=== PATIENT | male | born 1955 | race Caucasian/White ===

== ENCOUNTER → 2018-08-04 | Outpatient (CLI) | payer OTHER, SELFPAY ==
[2017-03-20 13:01] VITALS: BMI 31.1
[2018-08-04 10:30] LABS: AST(SGOT) 20 U/L (15-37); Alanine Aminotransfer ALT/SGPT 39 U/L (16-61); Albumin, Serum 3.6 g/dL (3.2-5.0); Alkaline Phosphatase 90 U/L (45-117); Anion Gap 8 (5-15); BUN 15 mg/dL (7-18); BUN/Creat Ratio 12.7 RATIO (10-20); Calcium,Total 8.7 mg/dL (8.5-10.1); Chloride 107 mmol/L (98-107); Cholesterol 175 mg/dL (200); Creatinine, Serum 1.18 mg/dL (0.70-1.30); EST Glomerular Filtration Rate 66 mL/min (>60); Est Glom Filt Rate - Afr Amer 80 mL/min (>60); Globulin 3.6 g/dL (2.2-4.2); Glucose 99 mg/dL (74-106); High Density Lipoprotein 36 mg/dL; PSA,Total - Annual Screen 1.78 ng/mL (0.00-4.00); Potassium 4.2 mmol/L (3.5-5.1); Protein, Total 7.2 g/dL (6.4-8.2); Sodium Level 144 mmol/L (136-145); Thyroid Stim Hormone (TSH) 0.71 uIU/mL (0.358-3.74); Triglycerides 119 mg/dL; Very Low Density Lipoprotein 24 mg/dL (5-40); Vitamin B12 555 pg/mL (211-911); Vitamin D,25 Hydroxy 17.9 ng/mL (29.95-100.01)
[2018-08-09 15:10] LABS: Testosterone, % Free 2.24 % (1.50-4.20); Testosterone, Total 299 ng/dL (264-916)
== END | disposition home or self-care (01) ==
LOC: MTLAB 08:39
PROVIDERS: Family Provider Family Medicine; PCP Family Medicine; Referring Provider Family Medicine; Visit Provider Family Medicine
DX: Z00.00 Encounter for general adult medical examination without abnormal findings (principal); R53.83 Other fatigue; E53.8 Deficiency of other specified B group vitamins; E34.9 Endocrine disorder, unspecified
CPT/HCPCS: 36415; 80053; 80061; 82306; 82607; 84153; 84402; 84403; 84443; G0103

== ENCOUNTER 2018-09-05 05:56 | Day surgery (SDC) | payer OTHER, SELFPAY ==
[2018-09-05] VITALS (8 sets, daily range): BP systolic 108–135; BP diastolic 77–97; PULSE 85–97; RESP 16; TEMP 36.4–36.8; O2SAT 92–98; BMI 31.6
--- NOTE | 2018-09-05 07:00 | COLBX_PTH ---
PATIENT: RENA YBARRA LOC: EN U#:[id number] AGE/SX: 63/M ROOM: RE09/05/[address]: Dr. Blayne Muniz MD : [id number] BED: DIS: 09/05/2018 SPEC #: [id number] RECD: 09/05/18 09:07 STATUS: CORIE MOON #: [id number] ANIYAH: 09/05/18 07:[address]: Blayne Muniz DEPT: SURGICAL PATHOLOGY RECD BY: Keith Adhikari ENTERED: 09/05/18 09:49 SP TYPE: COLON BX OTHR DR: Dr. Jesse Roberson MD Tissues: A - Cecum, NOS B - Transverse colon C - Descending colon D - Sigmoid colon biopsy Procedures: Surgery Specimen Level IV HEADER OPERATION: Colonoscopy - open access (MOD) PRE-OP DIAGNOSIS: Screening TISSUE SUBMITTED: A. Cecal polyp, B. Proximal transverse colon polyp biopsy, C. Descending colon polyp, D. Proximal sigmoid colon polyp MICROSCOPIC DIAGNOSIS A. Cecal polyp, biopsy: Fragments of tubular adenoma. B. Proximal transverse colon polyp, biopsy: Fragments of colonic mucosa, no pathologic diagnosis. C. Descending colon polyp, biopsy: Tubular adenoma. D. Proximal sigmoid colon polyp, biopsy: Tubular adenoma. STACY:yandy 09/06/18 MICROSCOPIC DESCRIPTION Slides are reviewed. GROSS DESCRIPTION A - Received in fixative is one container labeled with the patient's name and designated cecal polyp. The specimen consists of multiple irregular fragments of light garcias soft tissue that in aggregate measure 2 x 0.2 x 0.1 cm. The specimen is totally submitted in one cassette. B - Received in fixative is one container labeled with the patient's name and designated proximal transverse colon polyp. The specimen consists of multiple irregular fragments of light garcias soft tissue that in aggregate measure 0.6 x 0.2 x 0.1 cm. The specimen is totally submitted in one cassette. C - Received in fixative is one container labeled with the patient's name and designated descending colon polyp. The specimen consists of a garcias-pink polyp measuring 0.7 x 0.5 x 0.5 cm. The entire specimen is submitted in one cassette. D - Received in fixative is one container labeled with the patient's name and designated proximal sigmoid colon polyp. The specimen consists of two irregular fragments of light garcias soft tissue that in aggregate measure 0.4 x 0.3 x 0.1 cm. The specimen is totally submitted in one cassette. / SJ:yandy 09/05/18 TC:1 CPT: 84068 x4 ADDENDUM ADDENDUM ADDENDUM 09/11/2018 11:48 ADDENDUM 09/11/2018 11:48 ADDENDUM 09/11/2018 11:48 ADDENDUM 09/11/2018 11:48 ADDENDUM 09/11/2018 11:48 B. Proximal transverse colon polyp, biopsy: During QC review, Dr. Gomez favored the diagnosis of tubular adenoma.
--- NOTE | 2018-09-05 07:03 | HP.PCM_ITS ---
Problem List (1) Screening for intestinal cancer Status: Acute History of Present Illness Date of Admission: 09/05/18 The patient is a 63 year old M presents for screening colonoscopy. He denies bright red blood per rectum or melena. No abdominal pain. No change in body habitus. He has had one previous colonoscopy 10 years prior. He has not had any acute change of health. Past Medical History Allergies No Known Allergies Allergy (Verified 03/20/17 13:02) Home Medications: Ambulatory Orders Medication Instructions Recorded cholecalciferol (vitamin D3) 1,000 1,000 unit PO ONCE 03/20/17 unit capsule multivitamin,[id number] 1 tab PO QDAY 03/20/17 tablet vitamin B12 500 mcg-folic acid 400 1 tab PO QDAY 03/20/17 mcg tablet Henderson-3 Fatty Acids [Fish Oil] 500 mg PO DAILY 09/01/18 Testosterone 1.25 gm TD DAILY 09/01/18 Surgical History: Surgical History (Last Updated 03/20/17 @ 13:05 by Bianka Medrano) herniated disk surgery left ankle surgery lower back surgery Smoking Status: Never smoker Review of Systems Constitutional: Denies: Anorexia HEENT: Denies: Difficulty Swallowing Cardiovascular: Denies: Chest Pain, Chest Tightness Respiratory: Denies: Cough, Shortness of Breath Gastrointestinal: Denies: Abdominal Pain, Nausea, Melena Neurological: Denies: Focal weakness Endocrine: Denies: Change in Body Habitus VTE Information - Inpt Only VTE Present on Admission: No Patient Problems: Active and Suspected Problems Screening for intestinal cancer (Acute) - Physical Exam General: Alert, Oriented x3, Cooperative, No apparent distress HEENT: Atraumatic Lungs: Clear to auscultation, Normal air movement Cardiovascular: Regular rate, Regular Rhythm Abdomen: Bowel Sounds Present, Soft, Non Tender Extremities: No Calf Tenderness Psych/Mental Status: Normal Affect Vital Signs Temp Pulse Resp BP Pulse Ox 98.0 F 97 16 127/94 H 94 09/05/18 06:27 09/05/18 06:27 09/05/18 06:27 09/05/18 06:27 09/05/18 06:27 Oxygen Delivery Method Room Air Weight: 246 lb 0.574 oz Body Mass Index (BMI) 31.6 Assessment/Plan All Active Problems Screening for intestinal cancer (Acute) I am recommended the patient is screening colonoscopy with possible biopsy or polypectomy is indicated. He is aware of the technique, benefits, risks and alternatives. He presents via our open access program. We will proceed as noted. Blayne Muniz M.D., F.A.C.S.
--- NOTE | 2018-09-05 07:39 | OP.ENDO_ITS ---
09/05/2018 Gil Roberson [address] [place] [address] Re : Colonoscopy procedure for Zaid Silva Dear Dr. Roberson This procedure was performed on Wednesday, September 05, 2018. My impressions and recommendations are as follows: Impressions : - Hemorrhoids found on perianal exam. - Diverticulosis in the sigmoid colon. - One 7 mm polyp in the cecum, removed with a cold snare. Resected and retrieved. - One 3 mm polyp in the proximal transverse colon, removed with a cold biopsy forceps. Resected and retrieved. - One 2 mm polyp in the proximal transverse colon, removed with a cold biopsy forceps. Resected and retrieved. - One 10 mm polyp in the descending colon, removed with a hot snare. Resected and retrieved. - One 9 mm polyp in the proximal sigmoid colon, removed with a hot snare. Resected and retrieved. Recommendations : - Discharge patient to home. - Resume previous diet. - Continue present medications. - Repeat colonoscopy in 3 years for surveillance. - Telephone my office for pathology results in 1 week. My findings are described in the full procedure note, which is enclosed. If I can be of further assistance, please feel free to contact me at Doctor phone number(s): Work: . Sincerely, Blayne Muniz MD 09/05/2018 7:39:36 AM This report has been signed electronically.
== END 2018-09-05 08:26 | disposition home or self-care (01) ==
LOC: EN 05:57 → AC 06:02
PROVIDERS: Family Provider Family Medicine; PCP Family Medicine; Referring Provider Family Medicine; Visit Provider Surgery
PROC: 0DJD8ZZ Inspection of Lower Intestinal Tract, Via Natural or Artificial Opening Endoscopic (ICD-10-PCS; CPT 45378; principal; 2018-09-05 06:55)
DX: Z12.11 Encounter for screening for malignant neoplasm of colon (principal); D12.0 Benign neoplasm of cecum; D12.4 Benign neoplasm of descending colon; D12.5 Benign neoplasm of sigmoid colon; K63.5 Polyp of colon; K64.9 Unspecified hemorrhoids; K57.30 Diverticulosis of large intestine without perforation or abscess without bleeding
CPT/HCPCS: 45380; 45385; 88305; 99152; 99153; J7120

== ENCOUNTER → 2018-10-06 | Outpatient (CLI) | payer OTHER, SELFPAY ==
[2018-09-05 06:27] VITALS: BMI 31.6
[2018-10-09 09:07] LABS: Testosterone, Free 16.07 ng/dL (5.00-21.00)
[2018-10-09 11:57] LABS: Testosterone, % Free 3.15 % (1.50-4.20); Testosterone, Total 510 ng/dL (264-916)
== END | disposition home or self-care (01) ==
LOC: MTLAB 08:10
PROVIDERS: Family Provider Family Medicine; PCP Family Medicine; Referring Provider Family Medicine; Visit Provider Family Medicine
DX: E34.9 Endocrine disorder, unspecified (principal)
CPT/HCPCS: 36415; 84402; 84403

== ENCOUNTER → 2019-01-24 08:40 | Outpatient (CLI) | payer OTHER, SELFPAY ==
[2018-09-05 06:27] VITALS: BMI 31.6
[2019-01-24 10:46] LABS: ALB/GLOB Ratio 1.1 RATIO (0.9-2.4); AST(SGOT) 19 U/L (15-37); Alanine Aminotransfer ALT/SGPT 32 U/L (16-61); Albumin, Serum 3.7 g/dL (3.2-5.0); Alkaline Phosphatase 73 U/L (45-117); Anion Gap 6 (5-15); BUN 20 mg/dL (7-18); BUN/Creat Ratio 16.4 RATIO (10-20); Calcium,Total 8.6 mg/dL (8.5-10.1); Chloride 105 mmol/L (98-107); Cholesterol 207 mg/dL (200); Creatinine, Serum 1.22 mg/dL (0.70-1.30); EST Glomerular Filtration Rate 64 mL/min (>60); Est Glom Filt Rate - Afr Amer 77 mL/min (>60); Globulin 3.4 g/dL (2.2-4.2); Glucose 101 mg/dL (74-106); High Density Lipoprotein 35 mg/dL; PSA,Total - Annual Screen 1.57 ng/mL (0.00-4.00); Potassium 4.1 mmol/L (3.5-5.1); Protein, Total 7.1 g/dL (6.4-8.2); Sodium Level 141 mmol/L (136-145); Triglycerides 151 mg/dL; Very Low Density Lipoprotein 30 mg/dL (5-40)
[2019-01-27 14:07] LABS: Testosterone, Free 11.76 ng/dL (5.00-21.00)
[2019-01-29 20:26] LABS: Testosterone, % Free 2.45 % (1.50-4.20); Testosterone, Total 480 ng/dL (264-916)
== END ==
PROVIDERS: Family Provider Family Medicine; PCP Family Medicine; Referring Provider Family Medicine; Visit Provider Family Medicine
DX: E78.5 Hyperlipidemia, unspecified (principal); E34.9 Endocrine disorder, unspecified
CPT/HCPCS: 36415; 80053; 80061; 84153; 84402; 84403; G0103

== ENCOUNTER → 2019-07-30 | Outpatient (CLI) | payer OTHER, SELFPAY ==
[2018-09-05 06:27] VITALS: BMI 31.6
[2019-07-30 12:21] LABS: CRP, High Sensitivity Cardiac 3.05 mg/L
[2019-07-30 12:22] LABS: Vitamin D,25 Hydroxy 43.4 ng/mL
[2019-07-30 12:25] LABS: Hemoglobin A1c 4.8 % (3.8-5.6)
[2019-08-02 06:36] LABS: Estrogen, Total, Serum 142 pg/mL (40-115)
== END | disposition home or self-care (01) ==
PROVIDERS: PCP Family Medicine; Referring Provider Family Medicine; Visit Provider Family Medicine
DX: E55.9 Vitamin D deficiency, unspecified (principal); E66.9 Obesity, unspecified; E78.5 Hyperlipidemia, unspecified; E34.9 Endocrine disorder, unspecified
CPT/HCPCS: 36415; 82306; 82533; 82672; 83036; 86141

== ENCOUNTER → 2019-08-06 09:02 | Outpatient (CLI) | payer OTHER, SELFPAY ==
[2018-09-05 06:27] VITALS: BMI 31.6
[2019-08-06 12:43] LABS: ALB/GLOB Ratio 1.2 RATIO (0.9-2.4); AST(SGOT) 19 U/L (15-37); Alanine Aminotransfer ALT/SGPT 29 U/L (16-61); Albumin, Serum 4.2 g/dL (3.2-5.0); Alkaline Phosphatase 71 U/L (45-117); Anion Gap 7 (5-15); BUN 22 mg/dL (7-18); BUN/Creat Ratio 16.7 RATIO (10-20); Calcium,Total 9.4 mg/dL (8.5-10.1); Chloride 103 mmol/L (98-107); Cholesterol 294 mg/dL (200); Creatinine, Serum 1.32 mg/dL (0.70-1.30); EST Glomerular Filtration Rate 58 mL/min (>60); Est Glom Filt Rate - Afr Amer 70 mL/min (>60); Globulin 3.5 g/dL (2.2-4.2); Glucose 89 mg/dL (74-106); High Density Lipoprotein 51 mg/dL; Potassium 4.4 mmol/L (3.5-5.1); Protein, Total 7.7 g/dL (6.4-8.2); Sodium Level 139 mmol/L (136-145); Triglycerides 84 mg/dL; Very Low Density Lipoprotein 17 mg/dL (5-40)
[2019-08-10 09:36] LABS: Testosterone, Free 9.88 ng/dL (5.00-21.00)
[2019-08-10 12:31] LABS: Testosterone, % Free 1.93 % (1.50-4.20); Testosterone, Total 512 ng/dL (264-916)
== END ==
PROVIDERS: PCP Family Medicine; Visit Provider Family Medicine
DX: E78.5 Hyperlipidemia, unspecified (principal); E34.9 Endocrine disorder, unspecified; Z12.5 Encounter for screening for malignant neoplasm of prostate
CPT/HCPCS: 36415; 80053; 80061; 84402; 84403

== ENCOUNTER → 2019-08-27 08:43 | Outpatient (CLI) | payer OTHER, SELFPAY ==
[2018-09-05 06:27] VITALS: BMI 31.6
[2019-08-27 10:24] LABS: Cholesterol 259 mg/dL (200); High Density Lipoprotein 48 mg/dL; Triglycerides 111 mg/dL; Very Low Density Lipoprotein 22 mg/dL (5-40)
== END ==
PROVIDERS: PCP Family Medicine; Referring Provider Family Medicine; Visit Provider Family Medicine
DX: E78.5 Hyperlipidemia, unspecified (principal)
CPT/HCPCS: 36415; 80061

== ENCOUNTER → 2020-03-25 08:08 | Outpatient (CLI) | payer OTHER, SELFPAY ==
[2018-09-05 06:27] VITALS: BMI 31.6
[2020-03-25 10:51] LABS: Hemoglobin A1c 5.3 % (3.8-5.6)
[2020-03-25 10:53] LABS: ALB/GLOB Ratio 1.1 RATIO (0.9-2.4); AST(SGOT) 16 U/L (15-37); Alanine Aminotransfer ALT/SGPT 30 U/L (16-61); Alkaline Phosphatase 77 U/L (45-117); Anion Gap 7 (5-15); BUN 24 mg/dL (7-18); BUN/Creat Ratio 18.8 RATIO (10-20); Calcium,Total 9.1 mg/dL (8.5-10.1); Chloride 106 mmol/L (98-107); Cholesterol 237 mg/dL (200); Creatinine, Serum 1.28 mg/dL (0.70-1.30); EST Glomerular Filtration Rate 60 mL/min (>60); Est Glom Filt Rate - Afr Amer 73 mL/min (>60); Globulin 3.6 g/dL (2.2-4.2); Glucose 90 mg/dL (74-106); High Density Lipoprotein 46 mg/dL; PSA,Total - Annual Screen 1.47 ng/mL (0.00-4.00); Potassium 4.5 mmol/L (3.5-5.1); Protein, Total 7.6 g/dL (6.4-8.2); Sodium Level 141 mmol/L (136-145); Triglycerides 108 mg/dL; Very Low Density Lipoprotein 22 mg/dL (5-40)
== END ==
PROVIDERS: PCP Family Medicine; Referring Provider Family Medicine; Visit Provider Family Medicine
DX: Z00.00 Encounter for general adult medical examination without abnormal findings (principal); Z12.5 Encounter for screening for malignant neoplasm of prostate; E34.9 Endocrine disorder, unspecified
CPT/HCPCS: 36415; 80053; 80061; 83036; 84153; 84403; G0103

== ENCOUNTER 2020-05-06 16:39 | Outpatient (RCR) | payer OTHER, SELFPAY ==
[2018-09-05 06:27] VITALS: BMI 31.6
[2020-05-02] MEDS: COVID-19 VACC, MRNA(PFIZER)/PF 30 MCG/0.3 ML SYRINGE IM (17:22)
[2020-05-27] MEDS: COVID-19 VACC, MRNA(PFIZER)/PF 30 MCG/0.3 ML SYRINGE IM (16:04)
== END 2020-05-06 23:59 ==
LOC: IMMUN 16:39
PROVIDERS: PCP Family Medicine; Referring Provider Family Medicine; Visit Provider Family Medicine
DX: Z23 Encounter for immunization (principal)
CPT/HCPCS: 0001A; 0002A; 91300

== ENCOUNTER → 2020-12-22 08:39 | Outpatient (CLI) | payer OTHER, SELFPAY ==
[2020-12-22 10:36] LABS: ALB/GLOB Ratio 1.1 RATIO (0.9-2.4); AST(SGOT) 17 U/L (15-37); Alanine Aminotransfer ALT/SGPT 30 U/L (16-61); Albumin, Serum 3.8 g/dL (3.2-5.0); Alkaline Phosphatase 76 U/L (45-117); Anion Gap 3 (5-15); BUN 22 mg/dL (7-18); BUN/Creat Ratio 18.5 RATIO (10-20); Chloride 107 mmol/L (98-107); Cholesterol 208 mg/dL (200); Creatinine, Serum 1.19 mg/dL (0.70-1.30); EST Glomerular Filtration Rate 65 mL/min (>60); Est Glom Filt Rate - Afr Amer 79 mL/min (>60); Globulin 3.4 g/dL (2.2-4.2); Glucose 96 mg/dL (74-106); High Density Lipoprotein 46 mg/dL; Potassium 4.2 mmol/L (3.5-5.1); Protein, Total 7.2 g/dL (6.4-8.2); Sodium Level 140 mmol/L (136-145); Triglycerides 94 mg/dL; Very Low Density Lipoprotein 19 mg/dL (5-40)
== END ==
PROVIDERS: PCP Family Medicine; Referring Provider Family Medicine; Visit Provider Family Medicine
DX: E78.5 Hyperlipidemia, unspecified (principal); E34.9 Endocrine disorder, unspecified
CPT/HCPCS: 36415; 80053; 80061; 84403

== ENCOUNTER → 2020-12-25 16:48 | Outpatient (CLI) | payer OTHER, SELFPAY ==
--- NOTE | 2020-12-25 16:50 | RAD_ITS ---
STUDY: X-RAY - RIGHT SHOULDER REASON FOR EXAM: Male, 65 years old. Shoulder pain. TECHNIQUE: 4 view(s) of the shoulder. COMPARISON: None. FINDINGS: Osteopenia. Severe arthrosis of the glenohumeral joint with moderate osteophyte formation. Mild arthrosis of the AC joint. Normal acromion. Normal humeral head and visualized proximal humerus. The soft tissue structures are unremarkable. Normal visualized pulmonary apex. RAD/Shoulder min 2 Views IMPRESSION: Osteopenia with severe arthrosis of the glenohumeral joint and mild arthrosis of the acromioclavicular joint. No acute abnormality. Electronically Signed: Krunal Benjamin MD at 9:42 EDT , Service support ,
--- NOTE | 2020-12-25 16:50 | RAD_ITS ---
STUDY: X-RAY - LEFT SHOULDER REASON FOR EXAM: Male, 65 years old. PAIN TECHNIQUE: 4 view(s) of the shoulder. COMPARISON: None. FINDINGS: There is moderate to severe narrowing of the glenohumeral articulation, with bulky osteophyte formation of the medial aspect of the humeral head. Normal acromioclavicular joint. A healed fracture deformity of the mid aspect of the left clavicle is present. Normal acromion. Multiple healed left-sided rib fractures noted. No visualized acute fractures. The soft tissue structures are unremarkable. Normal visualized pulmonary apex. RAD/Shoulder min 2 Views IMPRESSION: 1. Moderate to severe narrowing of the left shoulder joint and bulky humeral head osteophyte formation 2. Healed fracture deformity of the left clavicle 3. Multiple healed left-sided rib fractures noted. Electronically Signed: Chuy Youssef MD at 18:28 EDT , Service support ,
== END ==
PROVIDERS: PCP Family Medicine; Referring Provider Family Medicine; Visit Provider Family Medicine
DX: M25.511 Pain in right shoulder (principal); M25.512 Pain in left shoulder
CPT/HCPCS: 73030

== ENCOUNTER → 2021-10-09 | Outpatient (CLI) | payer OTHER, SELFPAY ==
[2021-10-09 12:36] LABS: Hematocrit 50.5 % (40-54); Hemoglobin 16.8 g/dL (13.0-16.5); Mean Corp Hgb Conc 33.3 g/dL (32-36); Mean Corpuscular Hgb 29.8 pg (27.0-32.0); Mean Corpuscular Volume 89.7 fL (80-94); Mean Platelet Vol. 11.3 fl (6.2-12.0); Platelet Count 206 K/mm3 (150-450); RBC Distribution Width CV 12.9 % (11.6-14.6); RBC Distribution Width SD 42.5 fl (35.1-43.9); Red Blood Count 5.63 M/mm3 (4.6-6.2); White Blood Count 6.5 K/mm3 (4.4-11.0)
[2021-10-09 13:02] LABS: ALB/GLOB Ratio 1.1 RATIO (0.9-2.4); AST(SGOT) 14 U/L (15-37); Alanine Aminotransfer ALT/SGPT 33 U/L (16-61); Albumin, Serum 3.8 g/dL (3.2-5.0); Alkaline Phosphatase 76 U/L (45-117); Anion Gap 4 (5-15); BUN 18 mg/dL (7-18); BUN/Creat Ratio 14.1 RATIO (10-20); Calcium,Total 9.2 mg/dL (8.5-10.1); Chloride 108 mmol/L (98-107); Cholesterol 207 mg/dL (200); Creatinine, Serum 1.28 mg/dL (0.70-1.30); EST Glomerular Filtration Rate 60 mL/min (>60); Est Glom Filt Rate - Afr Amer 73 mL/min (>60); Globulin 3.5 g/dL (2.2-4.2); Glucose 102 mg/dL (74-106); High Density Lipoprotein 39 mg/dL; PSA,Total - Annual Screen 1.89 ng/mL (0.00-4.00); Potassium 4.5 mmol/L (3.5-5.1); Protein, Total 7.3 g/dL (6.4-8.2); Sodium Level 141 mmol/L (136-145); Triglycerides 103 mg/dL; Very Low Density Lipoprotein 21 mg/dL (5-40)
[2021-10-18 12:07] LABS: Testosterone, Free 18.18 ng/dL (5.00-21.00)
[2021-10-18 12:10] LABS: Testosterone, % Free 3.27 % (1.50-4.20); Testosterone, Total 556 ng/dL (264-916)
== END | disposition home or self-care (01) ==
LOC: MTLAB 09:44
PROVIDERS: PCP Family Medicine; Referring Provider Family Medicine; Visit Provider Family Medicine
DX: E34.9 Endocrine disorder, unspecified (principal)
CPT/HCPCS: 36415; 80053; 80061; 84153; 84402; 84403; 85027; G0103

== ENCOUNTER → 2024-05-29 | Outpatient (CLI) | payer MEDICARE, SELFPAY ==
[2024-05-29 15:14] LABS: Absolute Lymphocyte Count 2.19 X10^3/uL (0.83-4.51); Absolute Neutrophil Count 6.1 X10^3/uL (2.0-7.7); Basophil# 0.06 X10^3/uL; Basophil% 0.6 % (0-1); Eosinophil# 0.16 X10^3/uL; Eosinophils% 1.7 % (0-5); Hematocrit 42.4 % (40-54); Hemoglobin 13.7 g/dL (13.0-16.5); Lymphocyte # 2.19 X10^3/ul (0.83-4.51); Lymphocyte % 23.5 % (19-41); Mean Corp Hgb Conc 32.3 g/dL (32-36); Mean Corpuscular Hgb 28.3 pg (27.0-32.0); Mean Corpuscular Volume 87.6 fL (80-94); Monocyte# 0.76 X10^3/uL; Monocyte% 8.2 % (0-10); NRBC Flagged by Analyzer 0 % (0-5); Neutrophil % 65.7 % (47-70); Platelet Count 323 K/mm3 (150-450); RBC Distribution Width CV 12.8 % (11.6-14.6); RBC Distribution Width SD 40.8 fl (35.1-43.9); Red Blood Count 4.84 M/mm3 (4.6-6.2); White Blood Count 9.3 K/mm3 (4.4-11.0)
[2024-05-29 15:36] LABS: Erythrocyte Sedimentation Rate 16 mm/hr (0-20)
[2024-05-29 15:38] LABS: ALB/GLOB Ratio 1.1 RATIO (0.9-2.4); AST(SGOT) 19 U/L (<=37); Alanine Aminotransfer ALT/SGPT 21 U/L (<=46); Alkaline Phosphatase 94 U/L (40-129); Anion Gap 13 (5-15); BUN 26 mg/dL (4-19); BUN/Creat Ratio 26.5 RATIO (10-20); Calcium,Total 9.8 mg/dL (7.6-11.0); Carbon Dioxide 25.5 mmol/L (21.0-32.0); Chloride 102 mmol/L (98-108); Creatinine, Serum 0.98 mg/dL (0.70-1.20); EST Glomerular Filtration Rate 85 (>60); Globulin 3.5 g/dL (2.2-4.2); Glucose 95 mg/dL (70-99); Potassium 4.6 mmol/L (3.3-5.1); Protein, Total 7.5 g/dL (5.9-8.4); Sodium Level 141 mmol/L (133-145); Thyroid Stim Hormone (TSH) 0.516 uIU/mL (0.300-4.200); Total Bilirubin 0.43 mg/dL (0.00-1.30)
[2024-05-31 11:08] LABS: ANTINUCLEAR ANTIBODIES DIRECT Negative (Negative)
== END | disposition home or self-care (01) ==
PROVIDERS: PCP Family Medicine; Referring Provider Family Medicine; Visit Provider Family Medicine
DX: M02.30 Reiter's disease, unspecified site (principal)
CPT/HCPCS: 36415; 80053; 84443; 85025; 85652; 86038; 86140